=== PATIENT | female | born 1985 | race African-American/Black ===

== ENCOUNTER 2017-12-25 09:59 | Day surgery (SDC) | payer OTHER ==
[~2017-12-25 09:59] MED LIST: LR 1,000 ML IV
[2017-12-25 10:32] LABS: HEMATOCRIT 36.8 % (36.0-47.0); HEMOGLOBIN 12.1 g/dl (12.0-15.5); MEAN CORPUSCULAR HEMOGLOBIN 26.9 pg (27.0-33.0); MEAN CORPUSCULAR HGB CONC 32.9 g/dl (32.0-36.5); MEAN CORPUSCULAR VOLUME 81.8 fl (80.0-96.0); PLATELET COUNT, AUTOMATED 206 10^3/uL (150-450); RED CELL DISTRIBUTION WIDTH 13.4 % (11.5-14.5)
[2017-12-25] MEDS ORDERED: dexameTHASONE 4 MG/ML 1ML VIAL (J1100) As Ordered (10:38)
[2017-12-25] MEDS ORDERED: LIDOCAINE 2% INJ 100 MG/5 ML SDV (FOR ANES.) As Ordered (10:38)
[2017-12-25] MEDS ORDERED: fentaNYL 100 MCG/2 ML INJECTION (J3010) As Ordered ×2 (10:38→13:08)
[2017-12-25] MEDS ORDERED: ROCURONIUM BROMIDE 50 MG/5 ML VIAL As Ordered (10:38)
[2017-12-25] MEDS ORDERED: PROPOFOL 200 MG/20 ML VIAL As Ordered (10:38)
[2017-12-25] MEDS ORDERED: MIDAZOLAM INJ 2 MG/2 ML VIAL (J2250) As Ordered (10:39)
[2017-12-25] MEDS ORDERED: GLYCOPYRROLATE INJ 0.2 MG/ML 2 ML VIAL As Ordered (10:48)
[2017-12-25] MEDS ORDERED: NEOSTIGMINE 10 MG/10 ML VIAL (J2710) As Ordered (10:48)
[2017-12-25 10:56] LABS: ANION GAP 6 MEQ/L (8-16); BLOOD UREA NITROGEN 11 MG/DL (7-18); CALCIUM LEVEL 8.7 MG/DL (8.5-10.1); CARBON DIOXIDE LEVEL 25 MEQ/L (21-32); CHLORIDE LEVEL 106 MEQ/L (98-107); CREATININE FOR GFR 0.71 MG/DL (0.55-1.30); GLOMERULAR FILTRATION RATE > 60.0 (>60); GLUCOSE, FASTING 86 MG/DL (70-100); HCG, SERUM QUANTITATIVE < 1.0 MIU/ML; POTASSIUM SERUM 4.3 MEQ/L (3.5-5.1); SODIUM LEVEL 137 MEQ/L (136-145)
[2017-12-25] MEDS: METHYLENE BLUE 0.5% (5MG/ML) 10 ML AMP (PROVAYBLUE)(Q9968 PER 1MG) As Ordered (11:08)
[2017-12-25] MEDS: ACETAMINOPHEN 650 MG SUPP As Ordered (11:09)
[2017-12-25] MEDS: INDOMETHACIN 50 MG SUPPOSITORY (INDOCIN) As Ordered (11:34)
[2017-12-25] MEDS: ceFAZolin SOD 1 GM in D5W MINI-BAG PLUS 50 ML IV (11:45)
[2017-12-25] MEDS: ACETAMINOPHEN 650 MG SUPP PR (12:00)
[2017-12-25] MEDS: INDOMETHACIN 50 MG SUPPOSITORY (INDOCIN) PR (12:00)
[2017-12-25] MEDS: BUPIVACAINE HCL 0.25% 10 ML VIAL As Ordered (12:30)
[2017-12-25] MEDS: fentaNYL 100 MCG/2 ML INJECTION (J3010) IV ×4 (13:12→13:27)
[2017-12-25] MEDS ORDERED: LR 1,000 ML IV (13:15)
[2017-12-25] MEDS ORDERED: HYDROMORPHONE HCL 0.5 MG/ 0.5 ML SYRINGE (J1170 PER 1) IV (13:15)
[2017-12-25] MEDS: PERCOCET 5MG/325MG TAB PO ×2 (13:22→13:59)
[2017-12-25] MEDS ORDERED: ONDANSETRON 4MG/2ML VIAL (J2405) As Ordered (14:40)
[2017-12-25] MEDS: ONDANSETRON 4MG/2ML VIAL (J2405) IV (14:44)
== END 2017-12-25 15:36 | disposition home or self-care (01) ==
LOC: M SDC 09:59
DX: N97.9 Female infertility, unspecified (principal); G43.909 Migraine, unspecified, not intractable, without status migrainosus; F32.9 Major depressive disorder, single episode, unspecified; G47.33 Obstructive sleep apnea (adult) (pediatric)
CPT/HCPCS: 49320

== ENCOUNTER 2018-03-19 07:01 | Inpatient (IN) | payer OTHER ==
[2018-03-19] MEDS: LR 1,000 ML IV ×3 (07:00→13:23)
[2018-03-19] MEDS ORDERED: ceFAZolin 2 GM/D5W 50 ML IV BAG (J0690 PER 500MG) As Ordered (07:23)
[2018-03-19 07:38] LABS: HEMOGLOBIN 10.8 g/dl (12.0-15.5); MEAN CORPUSCULAR HEMOGLOBIN 26.2 pg (27.0-33.0); MEAN CORPUSCULAR HGB CONC 31.8 g/dl (32.0-36.5); MEAN CORPUSCULAR VOLUME 82.5 fl (80.0-96.0); PLATELET COUNT, AUTOMATED 197 10^3/uL (150-450); RED BLOOD COUNT 4.12 10^6/uL (4.00-5.40); RED CELL DISTRIBUTION WIDTH 13.5 % (11.5-14.5); WHITE BLOOD COUNT 5.8 10^3/uL (4.0-10.0)
[2018-03-19 08:07] LABS: ANION GAP 6 MEQ/L (8-16); BLOOD UREA NITROGEN 13 MG/DL (7-18); CALCIUM LEVEL 8.3 MG/DL (8.5-10.1); CARBON DIOXIDE LEVEL 27 MEQ/L (21-32); CHLORIDE LEVEL 108 MEQ/L (98-107); CREATININE FOR GFR 0.75 MG/DL (0.55-1.30); GLOMERULAR FILTRATION RATE > 60.0 (>60); GLUCOSE, FASTING 96 MG/DL (70-100); HCG, SERUM QUANTITATIVE < 1.0 MIU/ML; POTASSIUM SERUM 4.1 MEQ/L (3.5-5.1); SODIUM LEVEL 141 MEQ/L (136-145)
[2018-03-19] MEDS ORDERED: SCOPOLAMINE 1MG TRANSDERMAL PATCH As Ordered (08:08)
[2018-03-19] MEDS ORDERED: LIDOCAINE 2% INJ 100 MG/5 ML SDV (FOR ANES.) As Ordered (08:12)
[2018-03-19] MEDS ORDERED: ROCURONIUM BROMIDE 50 MG/5 ML VIAL As Ordered (08:12)
[2018-03-19] MEDS ORDERED: PROPOFOL 200 MG/20 ML VIAL As Ordered (08:12)
[2018-03-19] MEDS ORDERED: MIDAZOLAM INJ 2 MG/2 ML VIAL (J2250) As Ordered (08:13)
[2018-03-19] MEDS ORDERED: fentaNYL 250 MCG/5 ML INJECTION (J3010) As Ordered ×2 (08:13→10:06)
[2018-03-19] MEDS ORDERED: ACETAMINOPHEN 650 MG SUPP As Ordered (09:03)
[2018-03-19] MEDS ORDERED: METHYLENE BLUE 0.5% (5MG/ML) 10 ML AMP (PROVAYBLUE)(Q9968 PER 1MG) As Ordered (09:26)
[2018-03-19] MEDS: ACETAMINOPHEN 650 MG SUPP PR (09:50)
[2018-03-19] MEDS ORDERED: dexameTHASONE 4 MG/ML 1ML VIAL (J1100) As Ordered ×2 (09:51→10:30)
[2018-03-19] MEDS ORDERED: PHENYLephrine HCL 500 MCG/5 ML (100MCG/ML) SYRINGE (J2370) As Ordered (09:54)
[2018-03-19] MEDS ORDERED: ONDANSETRON 4MG/2ML VIAL (J2405) As Ordered (10:30)
[2018-03-19] MEDS ORDERED: METOCLOPRAMIDE INJ 10MG/2ML VIAL (J2765) As Ordered (10:30)
[2018-03-19] MEDS ORDERED: KETOROLAC 60 MG/2 ML VIAL (J1885) As Ordered (10:30)
[2018-03-19] MEDS ORDERED: SUGAMMADEX SODIUM 500 MG/5 ML VIAL (BRIDION) As Ordered (10:37)
[2018-03-19] MEDS ORDERED: HYDROmorphone HCL 2 MG/ML 1ML VIAL (J1170) As Ordered (10:42)
[2018-03-19] MEDS: BUPIVACAINE HCL 0.5% 10 ML VIAL As Ordered (10:57)
[2018-03-19] MEDS: fentaNYL 100 MCG/2 ML INJECTION (J3010) IV ×4 (11:26→11:43)
[2018-03-19] MEDS ORDERED: zolPIDEM TARTRATE 5 MG TAB PO (11:30)
[2018-03-19] MEDS ORDERED: HYDROMORPHONE HCL 0.5 MG/ 0.5 ML SYRINGE (J1170 PER 1) IV (11:30)
[2018-03-19] MEDS ORDERED: ONDANSETRON 4MG/2ML VIAL (J2405) IV (11:30)
[2018-03-19] MEDS: PERCOCET 5MG/325MG TAB PO (11:35)
[2018-03-19] MEDS: NS 1,000 ML IV ×2 (12:30→21:30)
[2018-03-19] MEDS: SCOPOLAMINE 1MG TRANSDERMAL PATCH TOP (13:22)
[2018-03-19] MEDS: NORCO, ANEXSIA 5/325MG TABLET (HYDROcodone/ACETAMINOPHEN) PO ×2 (14:41→20:46)
[2018-03-19] MEDS: ONDANSETRON 4MG/2ML VIAL (J2405) IV (14:44)
[2018-03-19] MEDS: ACETAMINOPH W/CODEINE #3 TAB UD PO (18:00)
[2018-03-20] MEDS: ACETAMINOPH W/CODEINE #3 TAB UD PO ×2 (01:27→07:45)
[2018-03-20] MEDS: NORCO, ANEXSIA 5/325MG TABLET (HYDROcodone/ACETAMINOPHEN) PO (04:13)
== END 2018-03-20 09:45 | disposition home or self-care (01) | DRG 745 ==
LOC: M OR 07:01 → M PED 12:12
PROC: 0UB78ZZ Excision of Bilateral Fallopian Tubes, Via Natural or Artificial Opening Endoscopic (ICD-10-PCS; principal; 2018-03-19 08:30)
PROC: 0UPD8HZ Removal of Contraceptive Device from Uterus and Cervix, Via Natural or Artificial Opening Endoscopic (ICD-10-PCS; 2018-03-19 08:30)
DX: N97.9 Female infertility, unspecified (principal)

== ENCOUNTER 2018-04-03 11:41 | Emergency (ER) | payer OTHER ==
[~2018-04-03] VITALS: Ht 160 cm; Wt 81.8 kg
[~2018-04-03 11:41] MED LIST changes: +ACET30TAB PO; -LR 1,000 ML IV
[2018-04-03] MEDS ORDERED: PSEU60TA23 PO (13:56)
[2018-04-03] MEDS ORDERED: FLON1SPR NARES (13:56)
[2018-04-03] MEDS ORDERED: MAGICMW SSP (13:56)
--- NOTE | 2018-04-03 13:56 | REP ---
Chest x-ray: Two views. History: Productive cough . Comparison study: No comparison . Findings: The lungs are well inflated and free of infiltrate. The pleural angles are sharp. The heart size is normal. Pulmonary vasculature is not increased. No significant bony abnormality is seen. Impression: Negative chest x-ray. Electronically Signed by Isaias Nettles MD 04/03/2018 01:47 P
[2018-04-03 14:00] VITALS: BP 148/80
== END 2018-04-03 14:04 | disposition home or self-care (01) ==
LOC: M ED 11:41
DX: J06.9 Acute upper respiratory infection, unspecified (principal); F33.9 Major depressive disorder, recurrent, unspecified

== ENCOUNTER 2018-06-25 14:37 | Emergency (ER) | payer OTHER ==
[~2018-06-25] VITALS: Ht 162.6 cm; Wt 87.3 kg
[~2018-06-25 14:37] MED LIST changes: +FLON1SPR NARES; +MAGICMW SSP; +PSEU60TA23 PO
[2018-06-25] MEDS ORDERED: PROP10TA56 PO (14:44)
[2018-06-25] MEDS ORDERED: WELLTAB40 PO (14:44)
[2018-06-25] MEDS ORDERED: ZOLO25TA PO (14:44)
[2018-06-25] MEDS ORDERED: KETOROLAC TROMETHAMINE 10 MG TAB PO ONE (15:30)
--- NOTE | 2018-06-25 16:40 | REP ---
Unilateral right ribs PA chest five views History: Pain Comparison: 06/18/2018 The lungs are clear. The heart is normal in size. The pulmonary vasculature is normal in appearance. The bony structure is intact. Impression: No acute disease. Electronically Signed by Yuniel Frank MD 06/25/2018 04:32 P
[2018-06-25] MEDS ORDERED: KETO10TAB PO ×2 (16:47→16:49)
[2018-06-25] MEDS ORDERED: CYCL10TA PO ×2 (16:47→16:49)
[2018-06-25 17:04] VITALS: BP 146/79
== END 2018-06-25 16:57 | disposition home or self-care (01) ==
LOC: M ED 14:37
DX: S29.011A Strain of muscle and tendon of front wall of thorax, initial encounter (principal); X58.XXXA Exposure to other specified factors, initial encounter; Y92.89 Other specified places as the place of occurrence of the external cause; R05 Cough; I10 Essential (primary) hypertension; R51 Headache; G47.33 Obstructive sleep apnea (adult) (pediatric); F32.9 Major depressive disorder, single episode, unspecified; Z79.899 Other long term (current) drug therapy